=== PATIENT | female | born 1950 | race Caucasian/White ===

== ENCOUNTER 2022-11-22 14:03 | Outpatient (CLI) | payer MEDICARE | END 2022-11-22 14:04 | disposition home or self-care (01) | LOC: CSHMAMMO 14:03 | PROVIDERS: ATTEND Student in an Organized Health Care Education/Training Program | DX: Z12.31 Encounter for screening mammogram for malignant neoplasm of breast (principal); Z13.820 Encounter for screening for osteoporosis; Z78.0 Asymptomatic menopausal state; N63.11 Unspecified lump in the right breast, upper outer quadrant; M85.89 Other specified disorders of bone density and structure, multiple sites | CPT/HCPCS: 77063; 77067; 77080 ==